=== PATIENT | female | born 1975 | race Caucasian/White ===

== ENCOUNTER 2016-07-16 18:44 | Emergency (ER) | payer BC ==
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
[~2016-07-16 18:44] MED LIST: ALPRAZOLAM PO; FIORICET W/CODE1 CAP PO; FLEXERIL PO; FLEXERIL10 M1 PO; IBUPROFEN800 MG PO; IMITREX PO; INDERAL LA PO; SYNTHROID PO; TYLOX 5/500 CAP1 CAP PO; VICODIN 5/500 T1 TAB PO; ZITHROMAX PO; [UNRECOGNIZED DRUG - OTHER]
== END 2016-07-16 21:21 | disposition home or self-care (01) ==
LOC: CED 18:44 → CFTX 18:44
DX: M17.11 Unilateral primary osteoarthritis, right knee (principal); E11.9 Type 2 diabetes mellitus without complications; I10 Essential (primary) hypertension; G43.909 Migraine, unspecified, not intractable, without status migrainosus; F32.9 Major depressive disorder, single episode, unspecified; F41.9 Anxiety disorder, unspecified; Z88.0 Allergy status to penicillin; Z88.8 Allergy status to other drugs, medicaments and biological substances
CPT/HCPCS: 29530; 73562; 73590; 99284